=== PATIENT | male | born 1945 | race American Indian/Alaskan Native ===

== ENCOUNTER 2017-04-29 12:30 | Day surgery (SDC) | payer MEDICARE ==
--- NOTE | 2017-04-27 10:38 | Anesthesia Consultation ---
Anesthesia Consult and Med Hx Date of service: 04/27/17 - Airway Anesthetic Teeth Evaluation: Good ROM Head & Neck: Adequate Mental/Hyoid Distance: Adequate Mallampati Class: Class II Intubation Access Assessment: Probably Good - Pulmonary Exam CTA: Yes - Cardiac Exam Cardiac Exam: RRR - Pre-Operative Health Status ASA Pre-Surgery Classification: ASA3 Proposed Anesthetic Plan: General - Pulmonary Hx Smoking: Yes (STOPPED 1994) Hx Asthma: Yes (NEB PRN) Hx Respiratory Symptoms: No Hx Sleep Apnea: Yes (DX SLEEP APNES WITH CPAP USE) - Cardiovascular System Hx Hypertension: Yes (X 20 YRS) Hx Heart Attack/AMI: No Hx Angina: No - Central Nervous System Hx Seizures: No CVA: Yes ("MILD" 20 YRS AGO- NO DEFICIT) Hx Back Pain: Yes - Gastrointestinal Hx Ulcer: Yes (RESOLVED) Hx Gastroesophageal Reflux Disease: Yes (mild, controlled) - Endocrine Hx Renal Disease: Yes (CKD) Hx Non-Insulin Dependent Diabetes: Yes - Hematic Hx Anemia: Yes (RESOLVED) - Other Systems Hx Alcohol Use: Yes (DAILY MIXED DRINK) Hx Cancer: No Hx Obesity: Yes
[2017-04-27 11:05] LABS: Basophils % (Auto) 0.5 % (0.0-1.8); Eosinophils % (Auto) 1.9 % (0.0-4.3); Hematocrit 40.1 % (35.5-45.6); Hemoglobin 13.8 gm/dl (11.8-15.2); Mean Corpuscular HGB Conc 35 % (32-34); Mean Corpuscular Hemoglobin 32 pg (28-32); Mean Corpuscular Volume 93 fl (84-94); Platelet Count 170 K/mm3 (140-440); Red Cell Distribution Width 14.8 % (13.2-15.2); White Blood Count 5.8 K/mm3 (4.5-11.0)
[2017-04-27 11:21] LABS: Alanine Aminotransferase 18 units/L (7-56); Albumin 4.1 g/dL (3.9-5); Albumin/Globulin Ratio 1.2 %; Alkaline Phosphatase 67 units/L (35-129); Anion Gap 18 mmol/L; BUN/Creatinine Ratio 21.81; Blood Urea Nitrogen 24 mg/dL (9-20); Calcium 8.6 mg/dL (8.4-10.2); Carbon Dioxide 22 mmol/L (22-30); Chloride 104.4 mmol/L (98-107); Glucose 118 mg/dL (75-100); Potassium 4.3 mmol/L (3.6-5.0); Sodium 140 mmol/L (137-145); Total Protein 7.5 g/dL (6.3-8.2)
[~2017-04-29 12:30] MED LIST: ANCEF/STERILE WATER 2 GM/20 ML 2 GM/20 ML SYRINGE IV NR; NACL 0.9% 1000 ML 1,000 ML IV SCH; PEPCID PO NR
[2017-04-29] MEDS ORDERED: DILAUDID ONE ×2 (13:39→16:12)
[2017-04-29] MEDS ORDERED: NACL BACTERIOSTATIC INFILTRATI ONE (13:45)
[2017-04-29] MEDS: VERSED IV NR ×2 (14:05→14:35)
[2017-04-29] MEDS ORDERED: DIPRIVAN 10 MG/ML IV ONE (14:37)
[2017-04-29] MEDS ORDERED: SUBLIMAZE ONE (14:37)
--- NOTE | 2017-04-29 14:42 | Post Operative Note ---
Date of procedure: 04/29/17 Pre-op diagnosis: overactive bladder Post-op diagnosis: same Findings: as above Procedure: cysto botox Anesthesia: MADDISON Surgeon: MARCO ANTONIO ALEXANDRE Estimated blood loss: none Pathology: none Condition: stable Disposition: PACU
--- NOTE | 2017-04-29 14:44 | Discharge Summary ---
Short Stay Discharge Plan Activity: other (no straining ) Weight Bearing Status: Full Weight Bearing Diet: low fat, low cholesterol, low salt Special Instructions: other (inc fluids ) Durable Medical Equipment Needed Upon Discharge: other (mullen ) Follow up with: KAYY SIMS MD [Primary Care Provider] - 7 Days MARCO ANTONIO ALEXANDRE MD [Staff Physician] - 05/01/17
[2017-04-29] MEDS ORDERED: XYLOCAINE MPF 2% ONE (15:15)
[2017-04-29] MEDS ORDERED: ZOFRAN ONE (15:32)
[2017-04-29] MEDS ORDERED: BOTOX ID ONE (15:35)
[2017-04-29] MEDS ORDERED: NACL 0.9% IV ONE (15:35)
[2017-04-29] MEDS ORDERED: WATER FOR IRRIG STERILE IR ONE (15:38)
[2017-04-29] MEDS ORDERED: LASIX ONE (15:49)
[2017-04-29] MEDS ORDERED: DILAUDID IV PRN (16:13)
[2017-04-29] MEDS ORDERED: ZOFRAN IV PRN (16:13)
[2017-04-29 16:53] VITALS: BP 130/72
--- NOTE | 2017-04-29 18:21 | Operative Report ---
PREOPERATIVE DIAGNOSIS: Overactive bladder. POSTOPERATIVE DIAGNOSIS: Overactive bladder. PROCEDURE: Cystoscopy, Botox injection. SURGEON: Nestor Delaney MD. ANESTHESIA: General. FINDINGS: This is a gentleman with severe overactive bladder, now presents for Botox injection 100 international units. DESCRIPTION OF PROCEDURE: The patient brought to the operating room and placed on the operating table. Following induction of anesthesia, placed in lithotomy position, prepped and draped in usual sterile fashion. Using injectable saline, the Botox was diluted into approximately 16 mL. The cystoscopy was carried out, showed an open bladder neck, a thickened bladder muscle wall. No significant cellules. Injections were carried out at 1 mL increments with a nice weal just about all the injections. The patient tolerated the procedure well. No significant bleeding, no cautery was required. There was clear efflux from each orifice. The patient tolerated the procedure well and brought to recovery in stable condition. JOB# [id number] LEANDER/JOANIE
--- NOTE | 2017-04-29 18:35 | Post Anesthesia Evaluation ---
- Post Anesthesia Evaluation Patient Participated: Yes Airway Patent: Yes Stable Respiratory Function: Yes Nausea/Vomiting: No Temp > 96.8F: Yes Pain Manageable: Yes Adequeate Hydration: Yes Anesthesia Complications: No Block Receding Appropriately: Not Applicable Patient on Ventilator: No
== END 2017-04-29 17:50 | disposition home or self-care (01) ==
LOC: OR 12:30
PROVIDERS: ATTEND Urology
DX: N32.81 Overactive bladder (principal); J45.909 Unspecified asthma, uncomplicated; G47.30 Sleep apnea, unspecified; I10 Essential (primary) hypertension; K21.9 Gastro-esophageal reflux disease without esophagitis; E11.22 Type 2 diabetes mellitus with diabetic chronic kidney disease; N18.9 Chronic kidney disease, unspecified; E66.9 Obesity, unspecified; Z68.41 Body mass index [BMI] 40.0-44.9, adult; Z86.73 Personal history of transient ischemic attack (TIA), and cerebral infarction without residual deficits; Z87.891 Personal history of nicotine dependence; Z72.89 Other problems related to lifestyle; Z79.4 Long term (current) use of insulin; Z79.899 Other long term (current) drug therapy; Z91.013 Allergy to seafood; Z91.09 Other allergy status, other than to drugs and biological substances
CPT/HCPCS: 36415; 52287; 80053; 82962; 85025; A4217; J0585; J0690; J1170; J1940; J2250; J2405; J2704; J7030; J3010

== ENCOUNTER 2021-12-03 16:22 | Emergency (ER) | payer MEDICARE ==
[2021-12-03 21:10] LABS: Calcium 9.4 mg/dL (8.4-10.2)
--- NOTE | 2021-12-03 23:44 | Event Note ---
Date: 12/03/21 Medical screening examination note: 76-year-old gentleman who follows with nephrology, Dr. Cuba, reportedly referred to the emergency room because of worsening renal insufficiency. He also endorses dysuria. Placed patient on secured entrance monitor, obtain EKG, obtain urinalysis, detailed history and physical to be performed by oncoming ER provider. Laboratory studies today demonstrate worsening renal insufficiency, and mildly elevated potassium Vital Signs 12/03/21 17:44 Temperature 97.7 F Pulse Rate 80 Respiratory 18 Rate Blood Pressure 110/55 [Right] O2 Sat by Pulse 97 Oximetry Lab Results 12/03/21 Range/Units 20:17 Sodium 139 (137-145) mmol/L Potassium 5.8 H (3.6-5.0) mmol/L Chloride 101.7 (98-107) mmol/L Carbon Dioxide 24 (22-30) mmol/L Anion Gap 19 mmol/L BUN 44 H (9-20) mg/dL Creatinine 2.0 H (0.8-1.3) mg/dL Estimated GFR 39 ml/min BUN/Creatinine Ratio 22 % Glucose 122 H (75-100) mg/dL Calcium 9.4 (8.4-10.2) mg/dL
[2021-12-04] MEDS ORDERED: ACETAMINOPHEN 325 MG TAB PO ONE (00:17)
[2021-12-04 01:13] LABS: Bilirubin,Urine NEG (Negative); Blood,Urine NEG (Negative); Color,Urine Yellow (Yellow); Mucus,Urine FEW /HPF; Protein,Urine <15 mg/dL mg/dL (Negative); Urobilinogen,Urine < 2.0 mg/dL (<2.0)
[2021-12-04] MEDS ORDERED: MORPHINE 4 MG/1 ML INJ IV ONE (01:13)
[2021-12-04] MEDS ORDERED: ONDANSETRON 4 MG/2 ML INJ IV ONE (01:13)
--- NOTE | 2021-12-04 01:21 | Emergency Department Report ---
ED General Adult HPI - General Chief complaint: Weakness Stated complaint: ORDERED TEST Time Seen by Provider: 12/04/21 01:11 Source: patient Mode of arrival: Ambulatory Limitations: No Limitations - History of Present Illness Initial comments: 76-year-old morbidly obese male with a chronic left shoulder pain who was sent in by his urology and nephrology for abdominal/pelvic CT scan due to prostate infection/abnormality. Patient just completed 1 week of antibiotics for likely UTI and prostate infection. Patient also reports some left shoulder pain exacerbation. No fall or trauma reported. No chest pain or shortness of breath or palpitation reported. No other modifying or associated factors reported. Severity scale (0 -10): 10 - Related Data Home Medications Medication Instructions Recorded Confirmed Last Taken Albuterol Sulfate [Albuterol 0.63% 0.63 mg IH TID PRN 04/23/17 09/20/20 04/27/17 NEBS] AtorvaSTATin 10 mg PO DAILY 09/20/20 09/20/20 Unknown metFORMIN [Glucophage] 500 mg PO BID 09/20/20 09/20/20 Unknown Previous Rx's Medication Instructions Recorded Last Taken Type Amiodarone [Cordarone 200 MG TAB] 200 mg PO DAILY #30 tablet 09/27/20 Unknown Rx Apixaban [Eliquis] 5 mg PO Q12HR #60 tablet 09/27/20 Unknown Rx Metoprolol [Lopressor TAB] 50 mg PO BID #60 tablet 09/27/20 Unknown Rx Allergies Allergy/AdvReac Type Severity Reaction Status Date / Time shellfish derived Allergy Rash Verified 09/20/20 13:52 Sulfa (Sulfonamide Allergy Rash Verified 09/20/20 13:52 Antibiotics) grass pollen AdvReac NASAL Verified 09/20/20 13:52 CONGESTION ED Review of Systems ROS: Stated complaint: DR ORDERED TEST Other details as noted in HPI Comment: All other systems reviewed and negative Genitourinary: other (Prostate pain) Musculoskeletal: arthralgia, myalgia ED Past Medical Hx - Past Medical History Hx Hypertension: Yes (X 20 YRS) Hx Heart Attack/AMI: No Hx Diabetes: Yes Hx GERD: Yes Hx Renal Disease: Yes (CKD) Hx Arthritis: Yes Hx Seizures: No Hx Asthma: Yes (NEB PRN) Hx Tuberculosis: (POSITIVE SKIN TEST , NEGATIVE CXR) Hx HIV: No - Social History Smoking Status: Former Smoker - Medications Home Medications: Home Medications Medication Instructions Recorded Confirmed Last Taken Type Albuterol Sulfate [Albuterol 0.63% 0.63 mg IH TID PRN 04/23/17 09/20/20 04/27/17 History NEBS] AtorvaSTATin 10 mg PO DAILY 09/20/20 09/20/20 Unknown History metFORMIN [Glucophage] 500 mg PO BID 09/20/20 09/20/20 Unknown History Amiodarone [Cordarone 200 MG TAB] 200 mg PO DAILY #30 tablet 09/27/20 Unknown Rx Apixaban [Eliquis] 5 mg PO Q12HR #60 tablet 09/27/20 Unknown Rx Metoprolol [Lopressor TAB] 50 mg PO BID #60 tablet 09/27/20 Unknown Rx ED Physical Exam - General Limitations: No Limitations General appearance: alert, in no apparent distress - Head Head exam: Present: normal inspection - Eye Eye exam: Present: normal appearance - ENT ENT exam: Present: normal exam, normal orophraynx, mucous membranes moist - Neck Neck exam: Present: normal inspection. Absent: tenderness - Respiratory Respiratory exam: Present: normal lung sounds bilaterally. Absent: respiratory distress, accessory muscle use - Cardiovascular Cardiovascular Exam: Present: regular rate, normal rhythm, normal heart sounds - GI/Abdominal GI/Abdominal exam: Present: soft, normal bowel sounds. Absent: distended, tenderness - Extremities Exam Extremities exam: Present: normal inspection, normal capillary refill. Absent: pedal edema, joint swelling, calf tenderness - Back Exam Back exam: Absent: tenderness - Neurological Exam Neurological exam: Present: alert, oriented X3 - Psychiatric Psychiatric exam: Present: normal affect, normal mood - Skin Skin exam: Present: warm, normal color ED Course Vital Signs 12/03/21 12/03/21 12/03/21 17:44 23:45 23:46 Temperature 97.7 F Pulse Rate 80 118 H Respiratory 18 18 16 Rate Blood Pressure 123/87 Blood Pressure 110/55 [Right] O2 Sat by Pulse 97 97 97 Oximetry 12/04/21 12/04/21 12/04/21 00:00 00:16 00:30 Temperature Pulse Rate 114 H 114 H 92 H Respiratory 18 26 H 29 H Rate Blood Pressure 110/85 110/84 113/72 Blood Pressure [Right] O2 Sat by Pulse 99 97 98 Oximetry 12/04/21 12/04/21 12/04/21 00:42 00:46 01:00 Temperature Pulse Rate 90 88 Respiratory 18 12 21 Rate Blood Pressure 111/82 120/49 Blood Pressure [Right] O2 Sat by Pulse 95 97 Oximetry 12/04/21 12/04/21 12/04/21 01:16 01:30 01:40 Temperature Pulse Rate 86 81 Respiratory 24 21 18 Rate Blood Pressure 122/69 119/86 Blood Pressure [Right] O2 Sat by Pulse 97 Oximetry 12/04/21 12/04/21 12/04/21 01:42 01:46 02:00 Temperature Pulse Rate 82 85 Respiratory 18 23 17 Rate Blood Pressure 124/90 130/72 Blood Pressure [Right] O2 Sat by Pulse 99 99 Oximetry 12/04/21 02:16 Temperature Pulse Rate 94 H Respiratory 14 Rate Blood Pressure 132/78 Blood Pressure [Right] O2 Sat by Pulse 97 Oximetry - Reevaluation(s) Reevaluation #1: 12/04/21 01:19 here with concern for prostate infection and pain with left shoulder acute on chronic pain --sent in by Urology and Nephrology for abd/pel CT scan-- and check routine labs for any infectious process or electrolyte abnormality. Reevaluation #2: 12/04/21 04:57 Patient reevaluated and reports feeling much better after the 4 of morphine for his shoulder pain--patient labs reviewed noted to be within normal limits except slightly elevated BUN and creatinine that is likely as a result of dehydration. Patient is given 1 L of IV fluid bolus x1. Patient reassured to follow-up with his urology and nephrology for further evaluation and treatment. ED Medical Decision Making - Lab Data Result diagrams: 12/04/21 01:22 12/03/21 20:17 Critical care attestation.: If time is entered above; I have spent that time in minutes in the direct care of this critically ill patient, excluding procedure time. ED Disposition Clinical Impression: Painful prostate, Chronic left shoulder pain, Dehydration Disposition: 01 HOME / SELF CARE / HOMELESS Is pt being admited?: No Does the pt Need Aspirin: No Condition: Stable Instructions: Dehydration, Adult, [id number], Joint Pain, [id number], Dehydration, Elderly, [id number], How to Use Cold Therapy, [id number] Additional Instructions: Call and follow-up with your urology and your nephrology for further evaluation and treatment of your chronic medical condition Increase your daily fluid to help your hydration Please do not hesitate to call or return to emergency room if your symptoms worsen Time of Disposition: 04:59
[2021-12-04 01:32] LABS: Basophils # (Auto) 0.1 K/mm3 (0.0-0.1); Basophils % (Auto) 0.8 % (0.0-1.8); Eosinophils # (Auto) 0.2 K/mm3 (0.0-0.4); Eosinophils % (Auto) 3.1 % (0.0-4.3); Hematocrit 38.9 % (35.5-45.6); Hemoglobin 13.1 gm/dl (11.8-15.2); Lymphocytes # (Auto) 2.1 K/mm3 (1.2-5.4); Lymphocytes % (Auto) 32.7 % (13.4-35.0); Mean Corpuscular HGB Conc 34 % (32-34); Mean Corpuscular Volume 93 fl (84-94); Monocytes # (Auto) 0.4 K/mm3 (0.0-0.8); Monocytes % (Auto) 6.9 % (0.0-7.3); Platelet Count 307 K/mm3 (140-440); Red Blood Count 4.18 M/mm3 (3.65-5.03); Red Cell Distribution Width 13.5 % (13.2-15.2)
--- NOTE | 2021-12-04 03:44 | Cat Scan Report ---
CT ABDOMEN AND PELVIS WITH CONTRAST INDICATION / CLINICAL INFORMATION: Dysuria, with questionable Prostate / Bladder infection. TECHNIQUE: Axial CT images were obtained through the abdomen and pelvis after 100 cc of Omnipaque [address] scans at this location are performed using CT dose reduction for ALARA by means of automated exposure control. COMPARISON: None available. FINDINGS: LOWER CHEST: No significant abnormality. AORTA / ARTERIES: Mild atherosclerotic calcification without acute abnormality. IVC / VEINS: No significant abnormality. LYMPH NODES: No significant adenopathy. COLON: Diverticulosis without acute inflammation. Post surgical change to the sigmoid colon. APPENDIX: No significant abnormality. STOMACH / SMALL BOWEL: No significant abnormality. PERITONEUM: No free fluid. No free air. No fluid collection. LIVER: Scattered hepatic cysts. GALLBLADDER: No significant abnormality. BILE DUCTS: No significant abnormality. PANCREAS: No significant abnormality. SPLEEN: No significant abnormality. ADRENALS: No significant abnormality. RIGHT KIDNEY / URETER: Scattered renal cysts. No hydronephrosis. LEFT KIDNEY / URETER: Scattered renal cysts. No hydronephrosis. URINARY BLADDER: No significant abnormality. REPRODUCTIVE ORGANS: No significant abnormality. SKELETAL SYSTEM: No significant abnormality. ADDITIONAL FINDINGS: None. IMPRESSION: 1. No acute intra-abdominal intrapelvic pathology. 2. Additional findings as above. Signer Name: Colt Brown DO Signed: 12/04/2021 3:40 AM Workstation Name: [id number]
[2021-12-04] MEDS ORDERED: SODIUM CHLORIDE 0.9% 1000 ML 1,000 ML IV ONE (04:24)
[2021-12-04 05:29] VITALS: BP 132/76
--- NOTE | 2021-12-04 09:21 | Event Note ---
Patient was sent to the ER from my office due to acute kidney injury, patient's baseline creatinine has been usually around 1.5 and upon evaluation yesterday was noted to have significantly elevated creatinine of 2.5, elevated liver enzyme, patient's PSA has also been elevated for which she was seen by [facility]. He was also complaining of increasing abdominal discomfort, at that point I sent the patient to the hospital stopped benazepril metformin and atorvastatin CT scan results have been reviewed, patient seems to be progressing well from renal standpoint, at this point I would suggest treating potassium medically, follow-up on the potassium level if creatinine is below 2 he can be considered for discharge to follow-up in the office he does see a engineering drawings checker in the outpatient setting and will need follow-up on his LFTs,
== END 2021-12-04 05:25 | disposition home or self-care (01) ==
LOC: ED 16:22
DX: N41.9 Inflammatory disease of prostate, unspecified (principal); G89.29 Other chronic pain; M25.512 Pain in left shoulder; E86.0 Dehydration; I13.0 Hypertensive heart and chronic kidney disease with heart failure and stage 1 through stage 4 chronic kidney disease, or unspecified chronic kidney disease; E11.22 Type 2 diabetes mellitus with diabetic chronic kidney disease; N18.9 Chronic kidney disease, unspecified; I50.9 Heart failure, unspecified; M19.90 Unspecified osteoarthritis, unspecified site; J45.909 Unspecified asthma, uncomplicated; R10.9 Unspecified abdominal pain; Z87.891 Personal history of nicotine dependence; Z88.2 Allergy status to sulfonamides; Z91.013 Allergy to seafood; Z88.8 Allergy status to other drugs, medicaments and biological substances; Z79.01 Long term (current) use of anticoagulants; Z79.899 Other long term (current) drug therapy
CPT/HCPCS: 36415; 74177; 80048; 81001; 85025; 87086; 93005; 96361; 96374; 96375; 99284; J2270; J2405; J7030; Q9967

== ENCOUNTER 2022-04-06 12:24 | Emergency (ER) | payer MEDICARE ==
[2022-04-06 12:57] VITALS: BP 120/83
[2022-04-06] MEDS ORDERED: ASPIRIN 325 MG TAB PO ONE (13:11)
--- NOTE | 2022-04-06 13:55 | XRay Report ---
CHEST 2 VIEWS INDICATION / CLINICAL INFORMATION: sob with atrial flutter. COMPARISON: None available. FINDINGS: SUPPORT DEVICES: None. HEART / MEDIASTINUM: No significant abnormality. LUNGS / PLEURA: Minimal atelectasis in the left lower lung No pneumothorax. Signer Name: Nate Temple MD Signed: 04/06/2022 1:51 PM Workstation Name: [id number]
[2022-04-06 15:08] LABS: Basophils % (Auto) 0.4 % (0.0-1.8); Eosinophils # (Auto) 0.2 K/mm3 (0.0-0.4); Eosinophils % (Auto) 2.9 % (0.0-4.3); Hematocrit 36.2 % (35.5-45.6); Hemoglobin 11.6 gm/dl (11.8-15.2); Lymphocytes # (Auto) 1.6 K/mm3 (1.2-5.4); Mean Corpuscular HGB Conc 32 % (32-34); Mean Corpuscular Volume 94 fl (84-94); Monocytes # (Auto) 0.6 K/mm3 (0.0-0.8); Monocytes % (Auto) 10.5 % (0.0-7.3); Platelet Count 218 K/mm3 (140-440); Red Blood Count 3.84 M/mm3 (3.65-5.03); Red Cell Distribution Width 16.1 % (13.2-15.2)
[2022-04-06 15:29] LABS: Alanine Aminotransferase 21 units/L (7-56); Albumin 4.1 g/dL (3.9-5); BUN/Creatinine Ratio 22; Blood Urea Nitrogen 28 mg/dL (9-20); Calcium 8.8 mg/dL (8.4-10.2); Hemolysis Index 23
[2022-04-06 15:31] LABS: INR 0.97 (0.87-1.13)
[2022-04-06 15:32] LABS: Partial Thromboplastin Time 30.5 Sec. (24.2-36.6)
--- NOTE | 2022-04-08 09:54 | Electrocardiograph Report ---
[facility] Test Date: 2022-04-06 Test Time: 13:05:58 Pat Name: YUE DANIELS Department: Room: Gender: M Cardiothoracic Physiotherapist: BAYRON : 1945 Requested By: ED DOC Order Number: [id number] Reading MD: Patrick Arreola Measurements Intervals Danielson Rate: 94 P: LA: QRS: 38 QRSD: 86 T: 114 QT: 441 QTc: 553 Interpretive Statements Atrial flutter nonspecific st-t Compared to ECG 12/04/2021 00:47:22 Electronically Signed On 04-08-2022 9:54:17 EDT by Patrick Arreola
== END 2022-04-07 01:28 | disposition left against medical advice (07) ==
LOC: ED 12:24
DX: R07.89 Other chest pain (principal); Z53.21 Procedure and treatment not carried out due to patient leaving prior to being seen by health care provider
CPT/HCPCS: 36415; 71046; 80053; 84484; 85025; 85610; 85730; 93005